=== PATIENT | female | born 1985 | race Two or more races ===

== ENCOUNTER 2023-08-31 21:23 | Inpatient (IN) | payer OTHER ==
[~2023-08-31] VITALS: Ht 167.6 cm; Wt 91.0 kg
[2023-08-31 22:07] LABS: BASO % 0.5 % (0.0-1.0); EOS # 0.1 10^3/uL (0.0-0.5); HEMATOCRIT 41.3 % (36.0-47.0); HEMOGLOBIN 14.6 g/dl (12.0-15.5); LYMPH % 32.3 % (24.0-44.0); MEAN CORPUSCULAR HEMOGLOBIN 34.9 pg (27.0-33.0); MEAN CORPUSCULAR HGB CONC 35.4 g/dl (32.0-36.5); MEAN CORPUSCULAR VOLUME 98.8 fl (80.0-96.0); MONO # 0.3 10^3/uL (0.0-0.8); MONO % 5.4 % (2.0-8.0); NEUTROPHILS # 3.7 10^3/uL (1.5-8.5); NEUTROPHILS % 60.5 % (36.0-66.0); PLATELET COUNT, AUTOMATED 299 10^3/uL (150-450); RED BLOOD COUNT 4.18 10^6/uL (4.00-5.40); WHITE BLOOD COUNT 6.1 10^3/uL (4.0-10.0)
[2023-08-31 22:29] LABS: BARBITURATES URINE NEGATIVE (NEGATIVE); CANNABINOIDS URINE NEGATIVE (NEGATIVE); COCAINE METABOLITE URINE NEGATIVE (NEGATIVE); METHADONE URINE NEGATIVE (NEGATIVE); OPIATES URINE NEGATIVE (NEGATIVE); PHENCYCLIDINE URINE NEGATIVE (NEGATIVE)
[2023-08-31 22:30] LABS: AMPHETAMINES LEVEL URINE POSITIVE (NEGATIVE); BENZODIAZEPINES URINE POSITIVE (NEGATIVE)
[2023-08-31 22:31] LABS: ETHYL ALCOHOL (ETHANOL) 0.213 % (0.000-0.010)
[2023-08-31 22:32] LABS: SALICYLATE LEVEL < 3.0 MG/DL (<30)
[2023-08-31 22:35] LABS: THYROID STIMULATING HORMONE 2.478 uIU/ML (0.55-4.78)
[2023-08-31 22:39] LABS: ALBUMIN 3.5 G/DL (3.2-5.2); ALKALINE PHOSPHATASE 95 U/L (46-116); ALT/SGPT 72 U/L (7.0-40); AST/SGOT 80 U/L (<34); BILIRUBIN,DIRECT 0.5 MG/DL (<0.4); BILIRUBIN,TOTAL 1.7 MG/DL (0.3-1.2); BLOOD UREA NITROGEN 6 MG/DL (9-23); CALCIUM LEVEL 8.5 MG/DL (8.5-10.1); CARBON DIOXIDE LEVEL 24 MMOL/L (20-31); CHLORIDE LEVEL 109 MMOL/L (98-107); CPK CREATINE PHOSPHOKINASE 81 U/L (34-145); CREATININE FOR GFR 0.64 MG/DL (0.55-1.30); GLOMERULAR FILTRATION RATE > 60.0 (>60); GLUCOSE, FASTING 76 MG/DL (60-100); POTASSIUM SERUM 4.5 MMOL/L (3.5-5.1); SODIUM LEVEL 142 MMOL/L (136-145); TOTAL PROTEIN 6.9 G/DL (5.7-8.2)
[2023-08-31 22:40] LABS: HCG, SERUM QUALITATIVE NEGATIVE (NEGATIVE)
[2023-08-31 22:40] LABS: RSV AMPLIFICATION NEGATIVE (NEGATIVE)
[2023-08-31] MEDS ORDERED: OLANZapine INTRAMUSCULAR 10MG VIAL IM ONE (23:30)
[2023-09-01] MEDS ORDERED: UNRESOLVED CLARIFICATION ENTRY XX SCH (00:01)
[2023-09-01] MEDS ORDERED: NS 1,000 ML IV ONE (02:30)
[2023-09-01 04:22] LABS: ALBUMIN 3.7 G/DL (3.2-5.2); BILIRUBIN,DIRECT 0.6 MG/DL (<0.4); BILIRUBIN,TOTAL 1.9 MG/DL (0.3-1.2); TOTAL PROTEIN 7.2 G/DL (5.7-8.2)
[2023-09-01] MEDS ORDERED: ERGO500029 PO (06:24)
[2023-09-01] MEDS ORDERED: NALT50TA4 PO (06:24)
[2023-09-01] MEDS ORDERED: ADDE20CA3 PO (06:24)
[2023-09-01] MEDS ORDERED: OMEP40CA5 PO (06:24)
[2023-09-01 06:29] LABS: ALBUMIN 3.1 G/DL (3.2-5.2); BILIRUBIN,DIRECT 0.6 MG/DL (<0.4); BILIRUBIN,TOTAL 1.7 MG/DL (0.3-1.2)
[2023-09-01] MEDS ORDERED: VITAMIN D 50,000 UNITS CAPSULE (ERGOCALCIFEROL 1.25MG) PO SCH (09:00)
[2023-09-01] MEDS ORDERED: NALTREXONE 50 MG TAB PO SCH (09:00)
[2023-09-01] MEDS ORDERED: OMEPRAZOLE 20MG CAP PO SCH ×2 (09:00→12:00)
[2023-09-01] MEDS: AMPHETAMINE/DEXTROAMPHETAMINE 5 MG *ER* CAPSULE (ADDERALL XR) PO SCH ×2 (09:15→21:00)
[2023-09-01] MEDS ORDERED: MED REC IN PROGRESS XX SCH (12:10)
[2023-09-01] MEDS ORDERED: HOME MED LIST COMPLETE! XX SCH (15:55)
[2023-09-01] MEDS ORDERED: MOM 30ML SUSPENSION UDC PO PRN (18:40)
[2023-09-01] MEDS ORDERED: diphenhydrAMINE 25MG CAP PO PRN (18:40)
[2023-09-01] MEDS ORDERED: IBUPROFEN 400MG TAB PO PRN (18:40)
[2023-09-01] MEDS ORDERED: MAALOX 30 ML SUSP *UDC PO PRN (18:40)
[2023-09-01] MEDS ORDERED: ACETAMINOPHEN TAB 650MG DOSE (2X325MG) PO PRN (18:40)
[2023-09-01] MEDS: traZODone 50 MG TAB PO PRN (21:37)
[2023-09-01 21:49] VITALS: BP 126/75; TEMP 97.9; O2SAT 95
[2023-09-02 06:33] VITALS: BP 110/68; TEMP 97.9; O2SAT 100; O2SAT 97
[2023-09-02] MEDS: OMEPRAZOLE 20MG CAP PO SCH (07:38)
[2023-09-02] MEDS: MULTIVITAMINS/MINERALS THERAP 1 TAB PO SCH (09:00)
[2023-09-02] MEDS: THIAMINE 100 MG TAB PO SCH ×2 (09:00→21:24)
[2023-09-02] MEDS ORDERED: NICOTINE 21MG/24HR 1 EA TRANSDERMAL TD PRN (10:25)
[2023-09-02] MEDS ORDERED: LORazepam 2 MG TAB PO PRN (10:25)
[2023-09-02] MEDS: FOLIC ACID 1MG TAB PO SCH (10:59)
[2023-09-02] MEDS: SERTRALINE HCL 25 MG TABLET PO SCH (10:59)
[2023-09-02 14:00] VITALS: BP 134/70
[2023-09-02] MEDS: ACAMPROSATE CALCIUM 333MG TABLET (CAMPRAL) PO SCH ×2 (15:58→21:24)
[2023-09-02 16:26] VITALS: BP 133/68; TEMP 98.2; O2SAT 100
[2023-09-02] MEDS: traZODone 50 MG TAB PO PRN (21:23)
[2023-09-02 21:39] VITALS: BP 129/61
[2023-09-03 06:04] VITALS: BP 90/53; TEMP 97.4; O2SAT 95
[2023-09-03 06:05] VITALS: BP 90/53
[2023-09-03] MEDS: OMEPRAZOLE 20MG CAP PO SCH (06:59)
[2023-09-03] MEDS: FOLIC ACID 1MG TAB PO SCH (09:28)
[2023-09-03] MEDS: MULTIVITAMINS/MINERALS THERAP 1 TAB PO SCH (09:28)
[2023-09-03] MEDS: THIAMINE 100 MG TAB PO SCH ×2 (09:28→20:54)
[2023-09-03] MEDS: ACAMPROSATE CALCIUM 333MG TABLET (CAMPRAL) PO SCH ×3 (09:29→20:54)
[2023-09-03] MEDS: SERTRALINE HCL 25 MG TABLET PO SCH (09:29)
[2023-09-03 14:00] VITALS: BP 126/90
[2023-09-03] MEDS: AMPHETAMINE/DEXTROAMPHETAMINE 5 MG *ER* CAPSULE (ADDERALL XR) PO SCH (16:49)
[2023-09-03 18:27] VITALS: BP 126/90; TEMP 98.4
[2023-09-03 21:10] VITALS: BP 140/80
[2023-09-03] MEDS: traZODone 50 MG TAB PO PRN (22:18)
[2023-09-04 06:25] VITALS: BP 113/70; TEMP 98.6; O2SAT 98
[2023-09-04] MEDS: OMEPRAZOLE 20MG CAP PO SCH (06:33)
[2023-09-04] MEDS: SERTRALINE HCL 25 MG TABLET PO SCH (08:37)
[2023-09-04] MEDS: FOLIC ACID 1MG TAB PO SCH (08:37)
[2023-09-04] MEDS: ACAMPROSATE CALCIUM 333MG TABLET (CAMPRAL) PO SCH ×3 (08:38→20:35)
[2023-09-04] MEDS: MULTIVITAMINS/MINERALS THERAP 1 TAB PO SCH (08:38)
[2023-09-04] MEDS: THIAMINE 100 MG TAB PO SCH ×2 (08:38→20:34)
[2023-09-04] MEDS: AMPHETAMINE/DEXTROAMPHETAMINE 5 MG *ER* CAPSULE (ADDERALL XR) PO SCH (08:38)
[2023-09-04 16:28] VITALS: BP 138/80
[2023-09-04] MEDS ORDERED: AMPHETAMINE/DEXTROAMPHETAMINE 5 MG *ER* CAPSULE (ADDERALL XR) PO ONE (19:00)
[2023-09-04] MEDS: traZODone 50 MG TAB PO PRN (22:59)
[2023-09-05 06:23] VITALS: BP 136/77; TEMP 97.8; O2SAT 95
[2023-09-05] MEDS: OMEPRAZOLE 20MG CAP PO SCH (06:34)
[2023-09-05] MEDS: FOLIC ACID 1MG TAB PO SCH (08:12)
[2023-09-05] MEDS: MULTIVITAMINS/MINERALS THERAP 1 TAB PO SCH (08:12)
[2023-09-05] MEDS: SERTRALINE HCL 25 MG TABLET PO SCH (08:12)
[2023-09-05] MEDS: ACAMPROSATE CALCIUM 333MG TABLET (CAMPRAL) PO SCH (08:13)
[2023-09-05] MEDS: AMPHETAMINE/DEXTROAMPHETAMINE 5 MG *ER* CAPSULE (ADDERALL XR) PO SCH ×2 (08:13→13:38)
[2023-09-05] MEDS ORDERED: SERT25TA21 PO (11:48)
[2023-09-05] MEDS ORDERED: TRAZ-252 PO (11:48)
[2023-09-05] MEDS ORDERED: NICO21PAT TD (11:48)
== END 2023-09-05 13:44 | disposition home or self-care (01) | DRG 881 ==
LOC: M ED 21:23 → EDBD 21:23 → M ED INP 09-01 18:37 → M PSY 09-01 21:06
PROVIDERS: ADMIT Student in an Organized Health Care Education/Training Program; ATTEND Student in an Organized Health Care Education/Training Program
DX: F32.A Depression, unspecified (principal); F10.10 Alcohol abuse, uncomplicated; F90.9 Attention-deficit hyperactivity disorder, unspecified type; F43.10 Post-traumatic stress disorder, unspecified; F41.9 Anxiety disorder, unspecified; T42.4X2A Poisoning by benzodiazepines, intentional self-harm, initial encounter; F43.23 Adjustment disorder with mixed anxiety and depressed mood; F17.290 Nicotine dependence, other tobacco product, uncomplicated; R74.01 Elevation of levels of liver transaminase levels; Z63.0 Problems in relationship with spouse or partner; Z79.899 Other long term (current) drug therapy; Z87.820 Personal history of traumatic brain injury; Z91.82 Personal history of military deployment